=== PATIENT | male | born 1985 | race Hispanic/Latino ===

== ENCOUNTER → 2025-04-07 19:06 | Outpatient (CLI) | payer OTHER, SELFPAY ==
--- NOTE | 2025-04-07 19:10 | DI.MRI.S_ITS ---
PROCEDURE: MR SHOULDER RT WO CON INDICATIONS: IMPINGEMENT TECHNIQUE: Noncontrast oblique coronal T2 fast spin echo with fat saturation, oblique sagittal T1 spin echo and T2 fast spin echo with fat saturation, axial T1 spin echo and T2 fast spin echo with fat saturation through the shoulder. COMPARISON: None. FINDINGS: Quality: Adequate. Tendons: Rotator cuff tendons: Less than 50% thickness bursal sided non insertional tear of supraspinatus tendon. Less than 25% thickness interstitial. Infraspinatus tendinopathy. Subscapularis and teres minor tendons are unremarkable. Long head of biceps tendon: Intact. No dislocation. Muscles: No disproportionate fatty degeneration of the rotator cuff musculature. Acromioclavicular joint: Unremarkable. Glenohumeral joint: Labrum: Unremarkable. Cartilage: No focal defect. Fluid: No effusion. Capsule: No pericapsular inflammation or scarring. Alignment: No dislocation. Bursa: Subacromial/subdeltoid bursa: Trace fluid. Subcoracoid bursa: Nondistended. Bones: No fracture. IMPRESSION: Intermediate-grade partial-thickness bursal sided supraspinatus tendon tear. Infraspinatus tendinopathy. The subacromial/subdeltoid bursitis. Dictated by: Rogelio Jain M.D. on 04/08/2025 at 16:26 Approved by: Rogelio Jain M.D. on 04/08/2025 at 16:36
== END ==
LOC: MRI 19:08
PROVIDERS: Referring Provider Student in an Organized Health Care Education/Training Program; Visit Provider Student in an Organized Health Care Education/Training Program
DX: M75.111 Incomplete rotator cuff tear or rupture of right shoulder, not specified as traumatic (principal); M75.41 Impingement syndrome of right shoulder; M75.51 Bursitis of right shoulder
CPT/HCPCS: 73221